=== PATIENT | female | born 1965 ===

== ENCOUNTER 2024-07-22 06:14 | Day surgery (SDC) | payer OTHER, SELFPAY ==
[2024-07-22 06:52] VITALS: BMI 50.4
[2024-07-22 07:00] VITALS: BP 122/68
[2024-07-22 08:11] VITALS: BP 104/59
[2024-07-22 08:15] VITALS: BP 108/61
[2024-07-22 08:30] VITALS: BP 105/60
[2024-07-22 08:38] VITALS: BP 114/59
== END 2024-07-22 08:40 | disposition home or self-care (01) ==
LOC: GI 06:14
PROVIDERS: ATTENDING PHYSICIAN Internal Medicine Gastroenterology
DX: Z12.11 Encounter for screening for malignant neoplasm of colon (principal); K57.30 Diverticulosis of large intestine without perforation or abscess without bleeding; K64.8 Other hemorrhoids; Z86.0100 Personal history of colon polyps, unspecified
CPT/HCPCS: G0105